=== PATIENT | female | born 1965 | race Caucasian/White ===

== ENCOUNTER 2024-01-09 07:10 | Emergency (ER) | payer BC | END 2024-01-09 08:18 | disposition home or self-care (01) | LOC: MADERS 07:10 | DX: J01.90 Acute sinusitis, unspecified (principal); H10.9 Unspecified conjunctivitis; H11.422 Conjunctival edema, left eye; H04.89 Other disorders of lacrimal system | CPT/HCPCS: 96372; 99283 ==